=== PATIENT | female | born 1990 | race Caucasian/White ===

== ENCOUNTER 2020-04-05 19:38 | Observation (INO) | payer MEDICARE, MEDICAID, SELFPAY ==
[2020-04-05 19:40] VITALS: BP 154/80; PULSE 94; RESP 16; TEMP 36.2; O2SAT 100; BMI 25.7
--- NOTE | 2020-04-05 19:53 | EKG12_ITS ---
Test Reason : SUB ABUSE Blood Pressure : / mmHG Vent. Rate : 086 BPM Atrial Rate : 086 BPM P-R Int : 164 ms QRS Dur : 084 ms QT Int : 372 ms P-R-T Axes : 068 074 034 degrees QTc Int : 445 ms Normal sinus rhythm with sinus arrhythmia Normal ECG Confirmed by VICTOR M ARROYO, ARNOLDO ([id number]), clinical editor JANETT KUHN ([id number]) on 04/11/2020 8:19:46 A M Referred By: CL Confirmed By:MIKHAIL DOW MD
--- NOTE | 2020-04-05 19:55 | ED.RN ---
NO OLD EKGS IN MUSE
--- NOTE | 2020-04-05 19:56 | ED.VIS.GEN ---
History of Present Illness Chief Complaint: Substance Abuse Informant: Patient Narrative: 30-year-old female with no significant past medical history presents with requesting detoxification from fentanyl. States that she uses multiple grams per day. Insufflate this medication. States that she is a current smoker but denies any other con commitment drug abuse. States that she does have some diaphoresis but denies all other symptoms. Denies any nausea, vomiting, abdominal pain, urinary symptoms, chest pain, shortness of breath, fever, chills. Last use was approximately 17 hours ago. Past Medical History - Allergies and Home Meds Allergies/Adverse Reactions: Allergies lithium Allergy (Verified 04/05/20 19:42) NEEDS FOLLOW-UP Primary Care Physician: Bahman Scott,Out of [NON-STAFF] - Past Medical History: None Surgical History: no surgical history Lives: Friends Smoking Status: Current every day smoker Alcohol: Occasional Drugs: - - Fentanyl Review of Systems General: Denies: Chills, Fever, Sweats Eyes: Denies: Visual changes - bilaterally, Diplopia ENT: Denies: Rhinorrhea, Sore throat Cardiovascular: Denies: Chest pain, Palpitations Respiratory: Denies: Dyspnea, Cough, Dyspnea on exertion Gastrointestinal: Denies: Abdominal pain, Nausea, Vomiting, Diarrhea, Melena, Hematochezia Genitourinary: Denies: Dysuria, Hematuria, Frequency Musculoskeletal: Denies: Back pain, Extremity Pain Skin: Denies: Rash, Wounds Neurological: Denies: Headache, Weakness, Numbness Physical Exam Vital Signs/Narrative: Vital Signs Temp Pulse Resp BP Pulse Ox 04/05/20 19:40 97.2 F L 94 16 154/80 H 100 Inital Vital Signs reviewed: Yes General: Well nourished, Well developed, No Acute Distress Head: Normocephalic, Atraumatic Eyes: Perrl, EOMI ENT: Moist mucous membranes, No rhinorrhea Neck: Supple, Nontender Cardiovascular: Regular rate, Regular rhythm, No murmurs Respiratory: No distress, CTA bilaterally, Chest nontender Abdomen: Soft, Nontender, Nondistended, Normal bowel sounds Back: Nontender, Normal Inspection Extremities: Nontender, No edema Skin: Normal color, No rash Neurological: Alert, Oriented x3, Cranial nerves II-XII grossly intact, Normal Strength, Normal Sensation Psychological: Normal affect, Normal Mood Diagnostic/Tx/Re-eval Laboratory Data 04/05/20 04/05/20 04/05/20 20:00 20:00 20:40 WBC 11.2 H RBC 4.74 Hgb 14.8 Hct 45.2 MCV 95.4 MCH 31.2 MCHC 32.7 RDW Std Deviation 43.6 RDW Coeff of Barbra 12.4 Plt Count 320 MPV 9.0 Immature Gran % (Auto) 0.400 Neut % (Auto) 69.8 Lymph % (Auto) 23.0 [place] % (Auto) 5.7 Eos % (Auto) 0.7 Baso % (Auto) 0.4 Absolute Neuts (auto) 7.8 H Absolute Lymphs (auto) 2.59 Nucleated RBC % 0 Sodium Potassium Chloride Carbon Dioxide Anion Gap BUN Creatinine Estim Creat Clear Calc Est GFR (MDRD) Af Amer Est GFR (MDRD) Non-Af BUN/Creatinine Ratio Glucose Calcium Total Bilirubin AST ALT Alkaline Phosphatase Total Protein Albumin Globulin Albumin/Globulin Ratio Urine Color Yellow Urine Clarity Sl. Cloudy Urine pH 6.5 Ur Specific [place] 1.015 Urine Protein 15 H Urine Glucose (UA) Normal Urine Ketones 15 H Urine Occult Blood 10 H Urine Nitrite Negative Urine Bilirubin Negative Urine Urobilinogen 4 H Ur Leukocyte Esterase 100 H Urine RBC 0-5 SEEN Urine WBC 10-25 SEEN Ur Squamous Epith Cells 0-5 SEEN Amorphous Sediment 2+ URATE Urine Bacteria 0 SEEN Urine Mucus 0 SEEN Ur Drug Screen Comment Ethyl Alcohol 04/05/20 04/05/20 20:40 20:40 WBC RBC Hgb Hct MCV MCH MCHC RDW Std Deviation RDW Coeff of Barbra Plt Count MPV Immature Gran % (Auto) Neut % (Auto) Lymph % (Auto) [place] % (Auto) Eos % (Auto) Baso % (Auto) Absolute Neuts (auto) Absolute Lymphs (auto) Nucleated RBC % Sodium 137 Potassium 4.1 Chloride 105 Carbon Dioxide 28.0 Anion Gap 4 L BUN 12 Creatinine 0.79 Estim Creat Clear Calc 99.42 Est GFR (MDRD) Af Amer 108 Est GFR (MDRD) Non-Af 90 BUN/Creatinine Ratio 15.2 Glucose 100 Calcium 9.7 Total Bilirubin 0.60 AST 13 L ALT 18 Alkaline Phosphatase 81 Total Protein 8.9 H Albumin 4.4 Globulin 4.5 H Albumin/Globulin Ratio 1.0 Urine Color Urine Clarity Urine pH Ur Specific [place] Urine Protein Urine Glucose (UA) Urine Ketones Urine Occult Blood Urine Nitrite Urine Bilirubin Urine Urobilinogen Ur Leukocyte Esterase Urine RBC Urine WBC Ur Squamous Epith Cells Amorphous Sediment Urine Bacteria Urine Mucus Ur Drug Screen Comment Ethyl Alcohol 4.0 - Medical Decision Making Appears well nontoxic. Vital signs within normal limits. Patient given nicotine patch. Will be admitted for detoxification from fentanyl. Stable at time of admission. Impression: 1. Fentanyl abuse 2. Tobacco abuse ED Disposition - Plan for ED Patient: Disposition: Acute Care Hospital [facility] [place] [facility] Referrals: [facility] Doctor,Out of [NON-STAFF] -
[2020-04-05 20:15] LABS: Bacteria 0 SEEN /hpf (None Seen); Mucous, Urine 0 SEEN /hpf (<or=2+)
[2020-04-05 20:18] LABS: Color, Urine Yellow (Yellow); Glucose, Dipstick Normal (Normal); Ketone-Dipstick 15 mg/dl (Negative); Leukocyte Esterase-Dipstick 100 /ul (Negative); Nitrite-Dipstick Negative (Negative); Occult Blood-Urine 10 /ul (Negative); Protein-Dipstick 15 mg/dl (Negative); Specific Gravity, Urine 1.015 (1.002-1.030); Urine Bilirubin Dipstick Negative (Negative); Urine Clarity Sl. Cloudy (Clear); Urine Urobilinogen 4 mg/dl (Normal); Urine pH 6.5 (5.0 - 8.0)
[2020-04-05 20:43] LABS: Amorphous Sediment 2+ URATE; Red Blood Cells-Urine 0-5 SEEN /hpf (0-5); Squamous Epithelial Cells - UA 0-5 SEEN /hpf (5-10); White Blood Cells 10-25 SEEN /hpf (0-5)
--- NOTE | 2020-04-05 20:44 | CM.ED ---
Social Work Consult: Substance Abuse Informant: Self Referral Met with patient in room. Introduced self and professor of social work role. Patient agreeable to speak with this professor of social work. Patient reports to be seeking medical management of withdrawal symptoms. Patient reports substance of choice is Fentanyl. Patient states to have last used this morning. Patient verbally agreeing to [facility] contract. Patient reports main motivation is getting my kids back. Patient tearful and states that patient children are currently is the custody of [facility] due to patient substance abuse. Patient reports to have lost custody of children in December of this year. Active support and listening provided. Lorna MOHAN, JAMAL
[2020-04-05 20:53] LABS: Absolute Lymphocyte Count 2.59 X10^3/uL (0.83-4.51); Absolute Neutrophil Count 7.8 X10^3/uL (2.0-7.7); Basophil# 0.05 X10^3/uL; Basophil% 0.4 % (0-1); Eosinophil# 0.08 X10^3/uL; Eosinophils% 0.7 % (0-5); Hematocrit 45.2 % (37-47); Hemoglobin 14.8 g/dL (12.0-15.0); Lymphocyte # 2.59 X10^3/ul (4.0); Mean Corp Hgb Conc 32.7 g/dL (32-36); Mean Corpuscular Hgb 31.2 pg (27.0-32.0); Mean Corpuscular Volume 95.4 fL (81-99); Monocyte# 0.64 X10^3/uL; Monocyte% 5.7 % (0-10); NRBC Flagged by Analyzer 0 % (0-5); Neutrophil # 7.84 X10^3/uL (2.7-7.7); Neutrophil % 69.8 % (47-70); Platelet Count 320 K/mm3 (150-450); RBC Distribution Width CV 12.4 % (11.6-14.6); RBC Distribution Width SD 43.6 fl (35.1-43.9); Red Blood Count 4.74 M/mm3 (4.2-5.4); White Blood Count 11.2 K/mm3 (4.4-11.0)
[2020-04-05 21:14] LABS: AST(SGOT) 13 U/L (15-37); Alanine Aminotransfer ALT/SGPT 18 U/L (13-56); Albumin, Serum 4.4 g/dL (3.2-5.0); Alkaline Phosphatase 81 U/L (45-117); Anion Gap 4 (5-15); BUN 12 mg/dL (7-18); BUN/Creat Ratio 15.2 RATIO (10-20); Calcium,Total 9.7 mg/dL (8.5-10.1); Chloride 105 mmol/L (98-107); Creatinine, Serum 0.79 mg/dL (0.55-1.02); EST Glomerular Filtration Rate 90 mL/min (>60); Est Glom Filt Rate - Afr Amer 108 mL/min (>60); Estimated Creatinine Clearance 99.42 ml/min; Globulin 4.5 g/dL (2.2-4.2); Glucose 100 mg/dL (74-106); Potassium 4.1 mmol/L (3.5-5.1); Protein, Total 8.9 g/dL (6.4-8.2); Sodium Level 137 mmol/L (136-145)
[2020-04-05 21:39] LABS: Amphetamine Urine VISTA POSITIVE (<1000 ng/mL); Barbiturate Urine VISTA NEGATIVE (< 200 ng/mL); Benzodiazepine Urine VISTA NEGATIVE (< 200 ng/mL); Cocaine Urine VISTA NEGATIVE (< 300 ng/mL); Ecstacy Urine VISTA POSITIVE (< 500 ng/mL); Methadone Urine VISTA POSITIVE (< 300 ng/mL); PCP Urine VISTA NEGATIVE (< 25 ng/mL); THC Urine VISTA POSITIVE (< 50 ng/mL); Vista UDS pH Range 6
--- NOTE | 2020-04-05 21:43 | CM.ED ---
Social Work Telephone call to [facility]. Manoj updated on patient being admitted to [facility] program. Lorna Vasques RESIDENTIAL SALES, VICKIS
--- NOTE | 2020-04-05 22:12 | PCM.HP.STD ---
Problem List (1) Opiate withdrawal Status: Acute History of Present Illness Date of Admission: 04/05/20 Chief Complaint: acute opiate withdrawal The patient is a 30 year old F seeking treatment for opiate use. Patient states that she snorts fentanyl which she thinks more recently was contaminated with or cut with methamphetamine. Patient said that her last use was 2 AM today and has not slept since then. Patient is seeking treatment for opiate withdrawal. She states that she is established with [facility] and I will be following up with them upon discharge. Patient came with her ex-boyfriend who is also seeking treatment for opiate withdrawal but he injects. The patient herself snorts and does not use needles. Though she is very concerned about having contracted hepatitis because she may have inadvertently injecting herself by grabbing some use needles but also she was sexually involved with users who did inject. [] Past Medical History Medical History: Medical History (Last Updated 04/05/20 @ 22:[address] Lalito Ruiz, DO) Bipolar disorder F31.9 Opiate abuse, continuous F11.10 Allergies lithium Allergy (Verified 04/05/20 19:42) NEEDS FOLLOW-UP Home Medications: Ambulatory Orders Medication Instructions Recorded Aripiprazole [Abilify] 5 mg PO DAILY 04/05/20 Clonazepam [Klonopin] 0.5 mg PO Q8H PRN PRN 04/05/20 Trazodone HCl 1 - 2 mg PO QHS 04/05/20 busPIRone [Buspar] 10 mg PO TID 04/05/20 Surgical History: no surgical history Lives: Friends Smoking Status: Current every day smoker Alcohol: Occasional Drugs: - - Fentanyl - *Family History Maternal History Items: No pertinent history Review of Systems Constitutional: Denies: Anorexia, Chills, Fever Eyes: Denies: Blurred vision, Double vision HEENT: Denies: Head Aches, Sinus Congestion, Sinus Drainage Cardiovascular: Denies: Chest Pain, Palpitations Respiratory: Denies: Cough, Shortness of breath at rest, Sputum production Gastrointestinal: Denies: Abdominal Pain, Nausea, Vomiting Genitourinary: Denies: Dysuria Musculoskeletal: Denies: Joint Pain, Joint Tenderness Psychiatric: Reports: Anxiety Comment: All review of systems were negative except as mentioned above in the history of present illness and the other review of systems. VTE Information - Inpt Only VTE Present on Admission: No VTE Mechan Device Prophylaxis: None VTE Pharm Prophylaxis ordered?: No Reason prophylaxis not ordered:: Treatment Not Indicated - Physical Exam Vitals/I&O's: Vital Signs Temp Pulse Resp BP Pulse Ox 36.2 C L 94 16 154/80 H 100 04/05/20 19:40 04/05/20 19:40 04/05/20 19:40 04/05/20 19:40 04/05/20 19:40 Oxygen Delivery Method Room Air Weight: 74.7 kg Body Mass Index (BMI) 25.7 General: Alert, Cooperative, No apparent distress HEENT: Atraumatic, Normocephalic Oral: Moist Mucosa, No Gingival or Mucosal Lesions/ Ulcerations Neck: No Nodes, Thyroid Normal Size and Texture Lungs: Clear to auscultation, Normal air movement, No rhonchi, No wheeze, No rales Cardiovascular: Regular rate, Regular Rhythm, Normal S1, Normal S2, No murmurs Abdomen: Bowel Sounds Present, Soft, Non Tender, Non-Distended, No Hepato-splenomegaly Extremities: No edema, No Calf Tenderness Skin: No rashes, No breakdown Musculoskeletal: No Tenderness to Palpation of Joints or Extremities, No Muscle Wasting, Arthritic Changes Psych/Mental Status: Appropriate, Anxious Laboratory Results 04/05/20 20:00: Urine Opiates Screen POSITIVE H, Urine Methadone Screen POSITIVE H, Ur Barbiturates Screen NEGATIVE, Ur Phencyclidine Scrn NEGATIVE, Ur Amphetamines Screen POSITIVE H, U Methamphetamin-MDMA POSITIVE H, U Benzodiazepines Scrn NEGATIVE, Urine Cocaine Screen NEGATIVE, U Cannabinoids Screen POSITIVE H, Ur Drug Screen Comment 04/05/20 20:00: Urine Color Yellow, Urine Clarity Sl. Cloudy, Urine pH 6.5, Ur Specific [place] 1.015, Urine Protein 15 H, Urine Glucose (UA) Normal, Urine Ketones 15 H, Urine Occult Blood 10 H, Urine Nitrite Negative, Urine Bilirubin Negative, Urine Urobilinogen 4 H, Ur Leukocyte Esterase 100 H, Urine RBC 0-5 SEEN, Urine WBC 10-25 SEEN, Ur Squamous Epith Cells 0-5 SEEN, Amorphous Sediment 2+ URATE, Urine Bacteria 0 SEEN, Urine Mucus 0 SEEN 04/05/20 20:40: WBC 11.2 H, RBC 4.74, Hgb 14.8, Hct 45.2, MCV 95.4, MCH 31.2, MCHC 32.7, RDW Std Deviation 43.6, RDW Coeff of Barbra 12.4, Plt Count 320, MPV 9.0, Immature Gran % (Auto) 0.400, Neut % (Auto) 69.8, Lymph % (Auto) 23.0, [place] % (Auto) 5.7, Eos % (Auto) 0.7, Baso % (Auto) 0.4, Absolute Neuts (auto) 7.8 H, Absolute Lymphs (auto) 2.59, Nucleated RBC % 0 04/05/20 20:40: Sodium 137, Potassium 4.1, Chloride 105, Carbon Dioxide 28.0, Anion Gap 4 L, BUN 12, Creatinine 0.79, Estim Creat Clear Calc 99.42, Est GFR (MDRD) Af Amer 108, Est GFR (MDRD) Non-Af 90, BUN/Creatinine Ratio 15.2, Glucose 100, Calcium 9.7, Total Bilirubin 0.60, AST 13 L, ALT 18, Alkaline Phosphatase 81, Total Protein 8.9 H, Albumin 4.4, Globulin 4.5 H, Albumin/Globulin Ratio 1.0 04/05/20 20:40: Ethyl Alcohol 4.0 Assessment/Plan All Active Problems Opiate withdrawal (Acute) 1. Acute opiate withdrawal: Patient's last use was around 2 AM. Drug screen positive for opiates, methadone, amphetamines, methamphetamines and cannabinoids. Patient will be initiated on buprenorphine taper which generally takes over 3 days. Patient states that she has a appointment on the with the addiction program. I told her that we would and evaluate as to how she is progressing during the course of her treatment if it would be prudent for her to be discharged day early to have that appointment or not. Patient also have other medications to help with her somatic complaints. Patient very concerned about having contracted hepatitis and is requesting test even though she is never any drugs though she is unsure if she is ever poked herself by grabbing needles of fellow users. 2. Bipolar disorder: Certainly complicates her long-term recovery. Continue with her home medications. Would defer to her psychiatrist regards to continuation of clonazepam in the noted drug addict but I will not change the prescription that she has received at this time. 3. VTE prophylaxis: Not indicated and low risk. Inpatient E&M: 46353 Init Hosp L2
[2020-04-05 22:14] VITALS: BP 118/74; PULSE 83; RESP 16; TEMP 36.6; O2SAT 99
[2020-04-05 23:45] VITALS: BMI 25.2
[2020-04-05 23:51] VITALS: BMI 25.3
[2020-04-05 23:56] VITALS: BP 120/90; PULSE 102; RESP 16; TEMP 36.6; O2SAT 98
[2020-04-06] MEDS: Gabapentin 300 MG Capsule PO ×3 (00:33→21:32)
[2020-04-06] MEDS: Buprenorphine HCl 2 MG TAB.SUBL SL ×3 (00:34→17:21)
[2020-04-06] MEDS: clonazePAM 0.5 MG Tablet PO ×3 (00:34→14:41)
[2020-04-06] MEDS: cloNIDine HCl 0.1 MG Tablet PO ×2 (00:34→08:17)
[2020-04-06] MEDS: Methocarbamol 750 MG Tablet 1500 MG PO ×3 (00:34→21:32)
[2020-04-06] MEDS: traZODone 50 MG Tablet 200 MG PO ×2 (01:23→21:24)
[2020-04-06] MEDS: busPIRone 15 MG TABLET 30 MG PO ×2 (01:23→21:23)
[2020-04-06] MEDS: ARIPiprazole 5 MG Tablet PO ×2 (01:23→21:25)
[2020-04-06 04:35] VITALS: BP 121/84; PULSE 90; RESP 14; TEMP 36.7; O2SAT 97
[2020-04-06 08:15] VITALS: BP 111/65; PULSE 75; RESP 18; TEMP 36.2; O2SAT 97
[2020-04-06] MEDS: Ibuprofen 600 MG Tablet PO (08:17)
[2020-04-06 09:42] LABS: HIV - WCH Non-Reactive (Nonreactive)
--- NOTE | 2020-04-06 11:11 | PCM.PN.HOSP ---
Patient Problems: Active and Suspected Problems (Last Updated 04/05/20 @ 22:[address] Lalito Ruiz, DO) Opiate withdrawal (Acute) Subjective: Pt states she smokes a lot and is asking for gum as well as a patch for nicotine cravings. Otherwise is feeling ok and not having too many withdrawal sx. Denies chills, nausea, diarrhea, agitation. Vitals/I&O's: Vital Signs Temp Pulse Resp BP Pulse Ox 97.1 F L 75 18 111/65 97 04/06/20 08:15 04/06/20 08:15 04/06/20 08:15 04/06/20 08:15 04/06/20 08:15 Oxygen Delivery Method Room Air Weight: 73.2 kg Body Mass Index (BMI) 25.2 Intake and Output for Last 24 Hours 04/04/20 04/05/20 04/06/20 23:59 23:59 23:59 Intake Total 50 / 50 Balance 50 / 50 General: Alert, Oriented x3, Cooperative, No apparent distress, Well developed, Well nourished, - - WF lying on L side under blankets in a dark room, appears older than stated age, calm Lungs: Clear to auscultation, Normal air movement, No rhonchi, No wheeze, No rales Cardiovascular: Regular rate, Regular Rhythm, Normal S1, Normal S2, No murmurs, No Ectopic Activity, No rub noted, No Gallop Abdomen: Bowel Sounds Present, Soft, Non Tender, Non-Distended, No Hepato-splenomegaly, No hernias noted Extremities: No clubbing, No cyanosis, No edema, Capillary Refill Less than 3 Seconds, Peripheral Pulses Normal Neurological: Cranial nerves II-XII grossly intact, Neuro grossly intact Psych/Mental Status: Appropriate, Flat Affect Laboratory Results 04/05/20 20:00: Urine Opiates Screen POSITIVE H, Urine Methadone Screen POSITIVE H, Ur Barbiturates Screen NEGATIVE, Ur Phencyclidine Scrn NEGATIVE, Ur Amphetamines Screen POSITIVE H, U Methamphetamin-MDMA POSITIVE H, U Benzodiazepines Scrn NEGATIVE, Urine Cocaine Screen NEGATIVE, U Cannabinoids Screen POSITIVE H, Ur Drug Screen Comment 04/05/20 20:00: Urine Color Yellow, Urine Clarity Sl. Cloudy, Urine pH 6.5, Ur Specific [place] 1.015, Urine Protein 15 H, Urine Glucose (UA) Normal, Urine Ketones 15 H, Urine Occult Blood 10 H, Urine Nitrite Negative, Urine Bilirubin Negative, Urine Urobilinogen 4 H, Ur Leukocyte Esterase 100 H, Urine RBC 0-5 SEEN, Urine WBC 10-25 SEEN, Ur Squamous Epith Cells 0-5 SEEN, Amorphous Sediment 2+ URATE, Urine Bacteria 0 SEEN, Urine Mucus 0 SEEN 04/05/20 20:40: WBC 11.2 H, RBC 4.74, Hgb 14.8, Hct 45.2, MCV 95.4, MCH 31.2, MCHC 32.7, RDW Std Deviation 43.6, RDW Coeff of Barbra 12.4, Plt Count 320, MPV 9.0, Immature Gran % (Auto) 0.400, Neut % (Auto) 69.8, Lymph % (Auto) 23.0, [place] % (Auto) 5.7, Eos % (Auto) 0.7, Baso % (Auto) 0.4, Absolute Neuts (auto) 7.8 H, Absolute Lymphs (auto) 2.59, Nucleated RBC % 0 04/05/20 20:40: Sodium 137, Potassium 4.1, Chloride 105, Carbon Dioxide 28.0, Anion Gap 4 L, BUN 12, Creatinine 0.79, Estim Creat Clear Calc 99.42, Est GFR (MDRD) Af Amer 108, Est GFR (MDRD) Non-Af 90, BUN/Creatinine Ratio 15.2, Glucose 100, Calcium 9.7, Total Bilirubin 0.60, AST 13 L, ALT 18, Alkaline Phosphatase 81, Total Protein 8.9 H, Albumin 4.4, Globulin 4.5 H, Albumin/Globulin Ratio 1.0 04/05/20 20:40: Ethyl Alcohol 4.0 04/05/20 20:40: Hepatitis A IgM Ab Pending, Hep Bs Antigen Pending, Hep B Core IgM Ab Pending, Hepatitis C Ab (EIA) Pending 04/05/20 20:40: HIV 1&2 Antibody Non-Reactive Current Medications Acetaminophen (Acetaminophen 500 Mg Tablet) 500 mg PO Q4H PRN PRN PRN Reason: Temp > 100.4 F Aripiprazole (Aripiprazole 5 Mg Tablet) 5 mg PO QHS JACKIE Last Admin: 04/06/20 01:23 Dose: 5 mg Documented by: Bisacodyl (Bisacodyl 10 Mg Suppository) 10 mg RECTAL DAILY PRN PRN PRN Reason: Constipation Buprenorphine HCl (Buprenorphine Hcl 2 Mg Tab.Subl) 4 mg SL Q8H JACKIE; Taper Stop: 04/09/20 00:14 Last Admin: 04/06/20 08:12 Dose: 4 mg Documented by: Buspirone HCl (Buspirone 15 Mg Tablet) 30 mg PO QHS [facility] Last Admin: 04/06/20 01:23 Dose: 30 mg Documented by: Clonazepam (Clonazepam 0.5 Mg Tablet) 0.5 mg PO Q8H PRN PRN PRN Reason: ANXIETY Last Admin: 04/06/20 08:21 Dose: 0.5 mg Documented by: Clonidine (Clonidine Hcl 0.1 Mg Tablet) 0.1 mg PO Q8H PRN PRN PRN Reason: RESTLESSNESS Last Admin: 04/06/20 08:17 Dose: 0.1 mg Documented by: Dicyclomine HCl (Dicyclomine 10 Mg Capsule) 20 mg PO Q6H PRN PRN PRN Reason: Abdominal Discomfort Gabapentin (Gabapentin 300 Mg Capsule) 300 mg PO Q8H PRN PRN PRN Reason: moderate to severe anxiety Last Admin: 04/06/20 08:18 Dose: 300 mg Documented by: Hydroxyzine Pamoate (Hydroxyzine Rossi 25 Mg Capsule) 50 mg PO Q6H PRN PRN PRN Reason: mild anxiety Ibuprofen (Ibuprofen 600 Mg Tablet) 600 mg PO Q8H PRN PRN PRN Reason: Pain Score 1-10 Last Admin: 04/06/20 08:17 Dose: 600 mg Documented by: Loperamide HCl (Loperamide 2 Mg Capsule) 2 mg PO Q4H PRN PRN PRN Reason: LOOSE STOOLS Methocarbamol (Methocarbamol 750 Mg Tablet) 1,500 mg PO Q6H PRN PRN PRN Reason: MUSCLE SPASM Last Admin: 04/06/20 08:18 Dose: 1,500 mg Documented by: Nicotine (Nicotine 21 Mg Patch) 21 mg TRANSDERM. DAILY JACKIE Last Admin: 04/06/20 08:13 Dose: 21 mg Documented by: Nicotine Polacrilex (Nicotine Polacrilex 2 Mg Gum) 2 mg PO Q2H PRN PRN PRN Reason: Nicotine Craving Ondansetron HCl (Ondansetron 8 Mg Tablet) 8 mg PO Q8H PRN PRN PRN Reason: NAUSEA Pramipexole Dihydrochloride (Pramipexole Di-Hcl 0.25 Mg Tablet) 0.25 mg PO TID PRN PRN PRN Reason: restless legs Senna (Senna Tablet) 2 tablet PO QHS PRN PRN PRN Reason: Constipation Trazodone HCl (Trazodone 50 Mg Tablet) 200 mg PO QHS [facility] Last Admin: 04/06/20 01:23 Dose: 200 mg Documented by: STROKE Vital Signs/Narrative: Vital Signs Temp Pulse Resp BP Pulse Ox 04/06/20 08:15 97.1 F L 75 18 111/65 97 Medical Necessity - Tobacco Use Smoking Status: Current every day smoker Tobacco Use: Cigarettes Assessment/Plan All Active Problems (Last Updated 04/05/20 @ 22:[address] Lalito Ruiz, DO) Opiate withdrawal (Acute) Acute Opiate Withdrawal -last use 2 am on 04/05 -On Suboxone taper with supportive meds -180 to evaluate -HIV neg and hepatitis studies are pending -pt denies IVDU and states that she snorts fentanyl Polysubstance Abuse -tox + for opiates/methadone/amphetamines/THC -180 to see Tobacco Abuse -recommend cessation -continue Nicotine patch -add nicotine gum Bipolar D/O -continue Abilify/Buspar/PRN Klonopin -trazodone at hs -f/u with psych as directed DVT Prophylaxis -early ambulation protocol Dispo -Likely d/c over the weekend Inpatient E&M: 57636 Subs Hosp L2
[2020-04-06] MEDS: Nicotine Polacrilex 2 MG GUM PO ×3 (12:20→21:24)
--- NOTE | 2020-04-06 13:04 | ADDICTION ---
This public relations writer met with patient in her room. She was alert and oriented and participated appropriately. She informed this public relations writer that she has a scheduled appointment for MAT and IND services at [facility] upon d/c from [facility]. She will self transport to these appointments upon d/c from [facility]. Completed assessments to be faxed to .
[2020-04-06] MEDS: Dicyclomine 10 MG Capsule 20 MG PO (14:41)
[2020-04-06] MEDS: Ondansetron 8 MG Tablet PO (14:41)
--- NOTE | 2020-04-06 15:20 | CHAPLAIN ---
Type of Pastoral Visit _x__ Initial Visit ___ Follow-up Visit ___ On-call Visit ___ General Patient Visit ___ Spiritual Assessment ___ Family Conference ___ Bereavement ___ Rapid Response ___ Code Blue ___ Other (describe below) Pastoral Care Referral From _x__ Patient ___ Family ___ Nurse ___ Physician ___ [employer] Lead [employer]ds Marketing ___ Firewall Engineer ___ Other (describe below) Sacrament/Intervention _x__ Active listening ___ Anointing ___ Synagogue ___ Bereavement ___ Communion _x__ Sulma exploration ___ _x__ Life review _x__ Prayer ___ Reconciliation ___ Sacrament of Sick _x__ Supportive presence ___ Wedding ___ Other (describe below) Pastoral Comments patient gave much life review and revealed many issues and emotional pain; pt has concerns related to drug addiction, relationships, loss of custody and future court matters of children, trust, support, and more; pt states that she has a counselor but that it has not been beneficial to her yet; pt says that she has no family support at this time; pt says I was just given a peer counselor for the addiction and that is all I have; patient would benefit from counseling, rehab, groups, and any options available;
[2020-04-06 17:25] VITALS: BP 110/66; PULSE 74; RESP 16; TEMP 36.3; O2SAT 97
[2020-04-06 21:20] VITALS: BP 110/73; PULSE 107; RESP 18; TEMP 36.8; O2SAT 100
[2020-04-06] MEDS: Loperamide 2 MG Capsule PO (21:32)
[2020-04-06] MEDS: Pramipexole Di-HCl 0.25 MG Tablet PO (21:32)
[2020-04-07] MEDS: clonazePAM 0.5 MG Tablet PO (00:39)
[2020-04-07] MEDS: Buprenorphine HCl 2 MG TAB.SUBL SL ×2 (00:40→07:17)
[2020-04-07 00:43] VITALS: BP 126/81; PULSE 94; RESP 16; TEMP 36.7; O2SAT 97
[2020-04-07] MEDS: Gabapentin 300 MG Capsule PO (05:44)
[2020-04-07] MEDS: Dicyclomine 10 MG Capsule 20 MG PO (05:44)
[2020-04-07] MEDS: Loperamide 2 MG Capsule PO (05:44)
[2020-04-07] MEDS: Nicotine Polacrilex 2 MG GUM PO (05:47)
[2020-04-07 05:55] VITALS: BP 120/75; PULSE 98; RESP 18; TEMP 36.4; O2SAT 96
--- NOTE | 2020-04-07 07:08 | PCM.DC ---
- Discharge Diagnoses Current Active Problems: Current Active and Chronic Problems (Last Updated 04/05/20 @ 22:[address] Lalito Ruiz, DO) Opiate withdrawal (Acute) You will use the following diet at home:: No restrictions, Regular Your food should be the consistency of: Regular Your liquids should be the consistency of: Regular/Thin Discharge Activity: Return to Normal Activity, No Restrictions, May Drive Allergies/Adverse Reactions: Allergies lithium Allergy (Verified 04/05/20 19:42) NEEDS FOLLOW-UP Medications to take at Discharge Aripiprazole [Abilify] 5 mg PO QHS 04/05/20 Clonazepam [Klonopin] 0.5 mg PO Q8H PRN PRN 04/05/20 Trazodone HCl 200 mg PO QHS 04/05/20 busPIRone [Buspar] 30 mg PO QHS 04/05/20 Primary Care Physician: [facility] Doctor,Out of [NON-STAFF] - Please follow up with your Primary Care Physician in: 1-2 weeks Test Results: Test results from this visit will be discussed in further detail at your follow-up appointment, if applicable. Please Follow Up With: Addiction When: Today for injection at 10 am
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
[2020-04-08 03:07] LABS: HEPATITIS B SURFACE AG Negative (Negative); Hepatitis A IgM Antibody Negative (Negative); Hepatitis B Core AB IgM Negative (Negative)
[2020-04-08 12:45] LABS: Hep C Antibodies <0.1 s/co ratio (0.0-0.9)
== END 2020-04-07 07:46 | disposition home or self-care (01) | DRG 897 ==
LOC: ED 21:27 → MS3 21:50
PROVIDERS: Emergency Provider Emergency Medicine; PCP Physician Assistant Medical; Visit Provider Internal Medicine
DX: F11.23 Opioid dependence with withdrawal (principal); F17.210 Nicotine dependence, cigarettes, uncomplicated; F31.9 Bipolar disorder, unspecified; F15.10 Other stimulant abuse, uncomplicated; F12.10 Cannabis abuse, uncomplicated; Z20.5 Contact with and (suspected) exposure to viral hepatitis; Z79.899 Other long term (current) drug therapy
CPT/HCPCS: 80053; 80074; 80307; 80320; 81001; 85025; 86703; 93005; 99218; 99281; 99406; G0378; G0480

== ENCOUNTER 2023-08-06 10:08 | Observation (INO) | payer MEDICARE, MEDICAID, SELFPAY ==
[2023-08-06 10:09] VITALS: BP 134/88; PULSE 88; RESP 16; TEMP 36.2; O2SAT 100; BMI 24.6
--- NOTE | 2023-08-06 10:26 | EDS_ITS ---
HPI History of Present Illness Chief Complaint: Substance Abuse Narrative Narrative: 33-year-old female past medical history of chronic neck pain and radiculopathy presents for detox from fentanyl. She relates history that she went through detox a few years ago. She had 3 years clean and sober from substance abuse. She states that she had to have kidney surgery, and send in the hospital on Dilaudid . She started using again after she was discharged. She states that she already has an outpatient center lined up for Saturday but wants to be admitted for detox. She last snorted fentanyl yesterday morning at around 8 or 9 AM. [facility] Medical History Bipolar disorder Opiate abuse, continuous Home Medications aripiprazole 5 mg tablet 5 mg PO QHS bipolar 04/05/20 [History Last Taken 04/03/20] buspirone 5 mg tablet 30 mg PO QHS depression 04/05/20 [History Last Taken 04/03/20] clonazepam 0.5 mg tablet 0.5 mg PO Q8H PRN PRN Anxiety 04/05/20 [History Last Taken 04/04/20] trazodone 100 mg tablet 200 mg PO QHS sleep 04/05/20 [History Last Taken 04/03/20] Allergy/AdvReac Type Severity Reaction Status Date / Time lithium Allergy NEEDS Verified 08/06/23 10:08 FOLLOW-UP Social History Smoking Status: Current every day smoker tobacco type: cigarettes ROS ROS ED ROS Narrative Constitutional: No fever, no chills. HEENT: No sore throat. No neck pain. No loss of vision. No rhinorrhea. Cardiovascular: No chest pain. No palpitations. No pedal edema. Respiratory: No cough, no shortness of breath. Abdominal: No abdominal pain. No nausea. No vomiting. Genitourinary: No dysuria. No hematuria. Musculoskeletal: No myalgias. No arthralgias. Neurologic: No headaches. No dizziness. No lightheadedness. Skin: No rash. No change in color. Psychiatric: No depression. No anxiety. EXAM Physical Exam Narrative Exam Narrative: Afebrile. Vital signs noted. HEENT: Normocephalic. Atraumatic. PERRL, EOMI. Neck soft and supple. No point tenderness or step off. Cardiovascular: Regular rate and rhythm. No murmurs, rubs, or gallops appreciated. Respiratory: No tachypnea. Lungs clear to auscultation bilaterally. Gastrointestinal: Abdomen soft, nontender, with normoactive bowel sounds. No rebound or guarding. Neurological: Awake. Alert. Nonfocal, nonlateralizing. Skin: No rash. Normal color. No pallor. Musculoskeletal: No pedal edema. Full range of motion extremities. Const Vital Signs: 08/06/23 10:09 Temperature 97.2 F L Temperature Source Temporal Pulse Rate 88 Respiratory Rate 16 Blood Pressure 134/88 H Blood Pressure Mean 103 Pulse Ox 100 Oxygen Delivery Method Room Air MDM MDM MDM Narrative Medical decision making narrative: Medical screening labs were obtained. I reviewed her prior records. She was seen in March 2020 and was admitted for fentanyl detox/opiate detox. Patient will be discussed with the hospitalist for admission. I reviewed her laboratory work and she has a leukocytosis of 18.9 which I think is nonspecific, hemoglobin normal at 14.7, hematocrit 45.8, platelet count normal at 349. CMP is grossly unremarkable with normal sodium and normal potassium at 138 and 4.5 respectively. Ethyl alcohol was reviewed and is negative. Serum is negative. Urine for drugs of abuse is positive for cannabinoids, but negative for other opiates. Patient was discussed with Dr. Abrams for admission to the medical surgical floor for detox from opiates. Disposition is admitted in stable condition. History & Record Review Discussion w/independent historian: Patient Additional record(s) reviewed:: Prior ED visit Lab Data Attestation: I reviewed the patient's lab results. Labs: Laboratory Results - last 24 hr 08/06/23 08/06/23 10:30 10:50 WBC 18.9 H RBC 4.77 Hgb 14.7 Hct 45.8 MCV 96.0 MCH 30.8 MCHC 32.1 RDW Std Deviation 44.0 H RDW Coeff of Barbra 12.4 Plt Count 349 MPV 9.2 Immature Gran % (Auto) 0.400 Neut % (Auto) 82.1 H Lymph % (Auto) 12.1 L [place] % (Auto) 4.1 Eos % (Auto) 0.8 Baso % (Auto) 0.5 Absolute Neuts (auto) 15.5 H Absolute Lymphs (auto) 2.28 Nucleated RBC % 0 Sodium 138 Potassium 4.5 Chloride 107 Carbon Dioxide 29.0 Anion Gap 2 L BUN 12 Creatinine 0.79 Estim Creat Clear Calc 96.66 Est GFR (MDRD) Af Amer 106 Est GFR (MDRD) Non-Af 88 BUN/Creatinine Ratio 15.2 Glucose 89 Calcium 9.1 Total Bilirubin 0.10 L AST 18 ALT 17 Alkaline Phosphatase 71 Total Protein 7.8 Albumin 3.7 Globulin 4.1 Albumin/Globulin Ratio 0.9 Serum , Qual NEGATIVE Urine Opiates Screen NEGATIVE Urine Methadone Screen NEGATIVE Ur Barbiturates Screen NEGATIVE Ur Phencyclidine Scrn NEGATIVE Ur Amphetamines Screen NEGATIVE MDMA (Ecstasy) Screen NEGATIVE U Benzodiazepines Scrn NEGATIVE Urine Cocaine Screen NEGATIVE U Cannabinoids Screen POSITIVE H Ur Drug Screen Comment Ethyl Alcohol < 3.0 Management Discussion w/another healthcare provider: Hospitalist (Dr. Abrams) Discharge Plan Dx/Rx/DC Orders Clinical Impression: Opiate withdrawal, Desire for detoxification Disposition Disposition: Acute Care Hospital [facility]
[2023-08-06 11:00] LABS: Absolute Lymphocyte Count 2.28 X10^3/uL (0.83-4.51); Absolute Neutrophil Count 15.5 X10^3/uL (2.0-7.7); Basophil# 0.09 X10^3/uL; Basophil% 0.5 % (0-1); Eosinophil# 0.15 X10^3/uL; Eosinophils% 0.8 % (0-5); Hematocrit 45.8 % (37-47); Hemoglobin 14.7 g/dL (12.0-15.0); Lymphocyte # 2.28 X10^3/ul (0.83-4.51); Lymphocyte % 12.1 % (19-41); Mean Corp Hgb Conc 32.1 g/dL (32-36); Mean Corpuscular Hgb 30.8 pg (27.0-32.0); Mean Platelet Vol. 9.2 fl (6.2-12.0); Monocyte# 0.78 X10^3/uL; Monocyte% 4.1 % (0-10); NRBC Flagged by Analyzer 0 % (0-5); Neutrophil # 15.48 X10^3/uL (2.7-7.7); Neutrophil % 82.1 % (47-70); Platelet Count 349 K/mm3 (150-450); RBC Distribution Width CV 12.4 % (11.6-14.6); Red Blood Count 4.77 M/mm3 (4.2-5.4); White Blood Count 18.9 K/mm3 (4.4-11.0)
[2023-08-06 11:15] LABS: Amphetamine Urine VISTA NEGATIVE (<1000 ng/mL); Barbiturate Urine VISTA NEGATIVE (< 200 ng/mL); Benzodiazepine Urine VISTA NEGATIVE (< 200 ng/mL); Cocaine Urine VISTA NEGATIVE (< 300 ng/mL); Ecstacy Urine VISTA NEGATIVE (< 500 ng/mL); Methadone Urine VISTA NEGATIVE (< 300 ng/mL); PCP Urine VISTA NEGATIVE (< 25 ng/mL); THC Urine VISTA POSITIVE (< 50 ng/mL); Vista UDS pH Range 6
[2023-08-06 11:16] LABS: ALB/GLOB Ratio 0.9 RATIO (0.9-2.4); AST(SGOT) 18 U/L (15-37); Alanine Aminotransfer ALT/SGPT 17 U/L (13-56); Albumin, Serum 3.7 g/dL (3.2-5.0); Alkaline Phosphatase 71 U/L (45-117); Anion Gap 2 (5-15); BUN 12 mg/dL (7-18); BUN/Creat Ratio 15.2 RATIO (10-20); Calcium,Total 9.1 mg/dL (8.5-10.1); Chloride 107 mmol/L (98-107); Creatinine, Serum 0.79 mg/dL (0.55-1.02); EST Glomerular Filtration Rate 88 mL/min (>60); Est Glom Filt Rate - Afr Amer 106 mL/min (>60); Estimated Creatinine Clearance 96.66 ml/min; Globulin 4.1 g/dL (2.2-4.2); Glucose 89 mg/dL (74-106); Potassium 4.5 mmol/L (3.5-5.1); Protein, Total 7.8 g/dL (6.4-8.2); Sodium Level 138 mmol/L (136-145)
[2023-08-06 11:19] LABS: Internal QC Validated? YES +Cl - CLEAR BKGD; Pregnancy, Serum, hCG Quali. NEGATIVE Negative
[2023-08-06 11:24] LABS: Alcohol, Blood (Medical)-Serum < 3.0 mg/dL
--- NOTE | 2023-08-06 11:34 | PCM.HP.STD ---
HPI - General General Date of Admission: 08/06/23 Date of Service: 08/06/23 Chief Complaint: Opiate abuse with desire for detox HPI Narrative BUSHRA VELEZ, is a 33 F who presented to [facility] ED on 08/06/2023 with opiate abuse with the desire for detoxification. Patient seen at bedside in the ED. Sitting up the edge of the bed, appears mildly anxious on exam. She appeared somewhat flushed and diaphoretic. She otherwise was conversing normally and in no acute distress. States that she last went through opiate detox about 3 to 4 years ago. She was 3 years clean and sober for substance abuse. However, she recently had kidney surgery and was given opiates during that hospitalization. She started using again after that discharge. She snorts fentanyl. Last use was yesterday morning around 8 or 9 AM. She otherwise denied any recent infectious symptoms. Denied any fevers or chills. No other acute concerns this time. [facility] Medical History Bipolar disorder Opiate abuse, continuous Home Medications NK 08/06/23 [History Last Taken Unknown] Allergy/AdvReac Type Severity Reaction Status Date / Time lithium Allergy NEEDS Verified 08/06/23 10:08 FOLLOW-UP Social History Smoking Status: Current every day smoker tobacco type: cigarettes ROS Constitutional Constitutional: Reports fatigue; Denies chills or fever(s) Eyes Eyes: Denies change in vision ENT HEENT: Denies nasal congestion, post nasal drip, sinus pressure or sore throat Cardiovascular Cardiovascular: Denies chest pain or edema Respiratory/Chest Respiratory/Chest: Denies cough or shortness of breath at rest Gastrointestinal Gastrointestinal: Reports abdominal pain and nausea; Denies constipation, diarrhea or vomiting Genitourinary Genitourinary: Denies dysuria Musculoskeletal Musculoskeletal: Reports myalgias; Denies arthralgias or back pain Neurologic Neurologic: Denies dizziness, focal weakness or headache(s) Vital Signs Vital Signs Vital Signs: 08/06/23 10:09 Temperature 97.2 F L Temperature Source Temporal Pulse Rate 88 Respiratory Rate 16 Blood Pressure 134/88 H Blood Pressure Mean 103 Pulse Ox 100 Oxygen Delivery Method Room Air Weight Weight: 71.305 kg Body Mass Index (BMI) 24.6 Physical Exam Const alert and oriented x3 Constitutional Narrative: Young female, alert and sitting edge at the edge of the bed, mildly anxious appearing, somewhat flushed and diaphoretic appearing, otherwise conversing normally and in no acute distress. General Appearance: cooperative HEENT normocephalic, head/scalp atraumatic, hearing grossly normal bilaterally and nasal mucous membranes and turbinates normal Eyes PERRL, EOMs intact bilaterally and conjunctivae normal Neck full ROM, no lymphadenopathy and supple Lymph Lymphatic: no lymphadenopathy noted Chest inspection of chest normal Resp normal respiratory effort, normal air movement, no use of accessory muscles and clear to auscultation bilaterally Cardio regular rate, regular rhythm, no murmurs and peripheral pulses 2+ throughout GI normal to inspection, nondistended, normoactive bowel sounds, soft to palpation, non-tender and non-distended Back/Spine normal ROM Extremity normal to inspection, full ROM and no pedal edema Skin no rashes or lesions noted Neuro moves all extremities and no focal motor deficits Speech: speech normal Psych mental status grossly normal Mood & Affect: anxious Results Lab / Micro Data 08/06/23 10:50 08/06/23 10:50 Labs: Laboratory Results - last 24 hr 08/06/23 10:30: Urine Opiates Screen NEGATIVE, Urine Methadone Screen NEGATIVE, Ur Barbiturates Screen NEGATIVE, Ur Phencyclidine Scrn NEGATIVE, Ur Amphetamines Screen NEGATIVE, MDMA (Ecstasy) Screen NEGATIVE, U Benzodiazepines Scrn NEGATIVE, Urine Cocaine Screen NEGATIVE, U Cannabinoids Screen POSITIVE H, Ur Drug Screen Comment 08/06/23 10:50: WBC 18.9 H, RBC 4.77, Hgb 14.7, Hct 45.8, MCV 96.0, MCH 30.8, MCHC 32.1, RDW Std Deviation 44.0 H, RDW Coeff of Barbra 12.4, Plt Count 349, MPV 9.2, Immature Gran % (Auto) 0.400, Neut % (Auto) 82.1 H, Lymph % (Auto) 12.1 L, [place] % (Auto) 4.1, Eos % (Auto) 0.8, Baso % (Auto) 0.5, Absolute Neuts (auto) 15.5 H, Absolute Lymphs (auto) 2.28, Nucleated RBC % 0, Sodium 138, Potassium 4.5, Chloride 107, Carbon Dioxide 29.0, Anion Gap 2 L, BUN 12, Creatinine 0.79, Estim Creat Clear Calc 96.66, Est GFR (MDRD) Af Amer 106, Est GFR (MDRD) Non-Af 88, BUN/Creatinine Ratio 15.2, Glucose 89, Calcium 9.1, Total Bilirubin 0.10 L, AST 18, ALT 17, Alkaline Phosphatase 71, Total Protein 7.8, Albumin 3.7, Globulin 4.1, Albumin/Globulin Ratio 0.9, Serum , Qual NEGATIVE, Ethyl Alcohol < 3.0 Assessment & Plan Assessment/Plan (1) Opiate withdrawal: (2) Desire for detoxification: PLAN: Plan Patient is a 33-year-old female who presented to [facility] ED on 08/06/2023 for opiate detoxification. 1. Opiate abuse with desire for detoxification ? Case management/addiction medicine consulted. Urine drug screen was positive only for cannabinoids, but fentanyl notably does not show up on the screen. Orders placed per opiate withdrawal order set. Patient notably was adamant that she did not want to take Subutex while here, preferred to go cold turkey and only use as needed medications per opiate withdrawal order set. 2. Leukocytosis ? WBC count 18.9 on admit. Noninfectious appearing, hemodynamically stable and afebrile on admission. Suspect secondary to acute stress state. Follow-up a.m. CBC. No need for antibiotics at this time. 3. Current cigarette smoker ? Nicotine patch with nicotine gum as needed ordered per patient request. Encouraged cessation. 4. History of bipolar disorder ? Previously on antipsychotic medications at home, not currently on any medications. Outpatient follow-up. DVT prophylaxis: Low risk, ambulate CODE STATUS: Full code, verified Expected disposition: Home, 2 to 3 days Total clinical time spent by myself addressing the patient's medical issues, reviewing all the data, and collaborating with patient's care team: 40 minutes. Charges/Coding Visit Charges Inpatient E&M: 58751 Init Hosp L1
--- NOTE | 2023-08-06 11:35 | NURSING ---
DR HOUSTON FOR DR SON
--- NOTE | 2023-08-06 11:41 | NURSING ---
MED SURG MOSTELLER DETOX FROM OPIATES/FENTENYL
[2023-08-06 12:02] VITALS: BP 127/81; PULSE 73; RESP 16; TEMP 36.6; O2SAT 98
[2023-08-06 12:51] VITALS: BMI 24.6
[2023-08-06 12:52] VITALS: BP 122/87; PULSE 77; RESP 18; TEMP 36.9; O2SAT 98
[2023-08-06] MEDS: Dicyclomine 10 MG Capsule 20 MG PO ×2 (13:19→21:35)
[2023-08-06] MEDS: hydrOXYzine PAM 25 MG Capsule 50 MG PO (13:19)
[2023-08-06] MEDS: cloNIDine HCl 0.1 MG Tablet 0.100000000000000006 MG PO ×2 (13:19→21:35)
[2023-08-06] MEDS: Methocarbamol 750 MG Tablet PO ×2 (13:19→21:35)
[2023-08-06 17:38] VITALS: BP 105/77; PULSE 72; RESP 18; TEMP 36.8; O2SAT 100
[2023-08-06 20:15] VITALS: BP 111/81; PULSE 73; RESP 16; TEMP 36.8; O2SAT 100
[2023-08-06] MEDS: traZODone 100 MG Tablet PO (21:34)
[2023-08-06] MEDS: Gabapentin 300 MG Capsule PO (21:35)
[2023-08-07 03:57] VITALS: BP 110/76; PULSE 99; RESP 16; TEMP 36.1; O2SAT 96
[2023-08-07] MEDS: Methocarbamol 750 MG Tablet PO ×2 (05:39→11:25)
[2023-08-07] MEDS: Dicyclomine 10 MG Capsule 20 MG PO ×2 (05:39→11:25)
[2023-08-07] MEDS: cloNIDine HCl 0.1 MG Tablet 0.100000000000000006 MG PO (05:39)
[2023-08-07] MEDS: Gabapentin 300 MG Capsule PO (05:39)
--- NOTE | 2023-08-07 07:51 | ADDICTION ---
clinician met with client to discuss substance abuse and tx hx. client presented upset, avoidant, and hostile. when asked about her upcoming tx appointment, client stated CBT in [place] . client was not cooperative in answering any more questions. clinician completed discharge tx plan. clinician will attempt to speak with client tomorrow, 08/08/22.
[2023-08-07 07:56] LABS: Hematocrit 43.7 % (37-47); Hemoglobin 14.4 g/dL (12.0-15.0); Mean Corpuscular Hgb 31.1 pg (27.0-32.0); Mean Corpuscular Volume 94.4 fL (81-99); Mean Platelet Vol. 9.3 fl (6.2-12.0); Platelet Count 358 K/mm3 (150-450); RBC Distribution Width CV 12.3 % (11.6-14.6); RBC Distribution Width SD 42.7 fl (35.1-43.9); Red Blood Count 4.63 M/mm3 (4.2-5.4); White Blood Count 9.5 K/mm3 (4.4-11.0)
[2023-08-07 07:57] VITALS: BP 113/76; PULSE 83; RESP 16; TEMP 36.4; O2SAT 98
[2023-08-07 08:29] LABS: Anion Gap 8 (5-15); BUN 16 mg/dL (7-18); BUN/Creat Ratio 20.3 RATIO (10-20); Calcium,Total 9.1 mg/dL (8.5-10.1); Chloride 107 mmol/L (98-107); Creatinine, Serum 0.79 mg/dL (0.55-1.02); EST Glomerular Filtration Rate 88 mL/min (>60); Est Glom Filt Rate - Afr Amer 106 mL/min (>60); Estimated Creatinine Clearance 96.66 ml/min; Glucose 113 mg/dL (74-106); Potassium 4.6 mmol/L (3.5-5.1); Sodium Level 139 mmol/L (136-145)
[2023-08-07] MEDS: Acetaminophen 325 MG Tablet 650 MG PO (11:25)
[2023-08-07] MEDS: hydrOXYzine PAM 25 MG Capsule 50 MG PO (11:25)
[2023-08-07 11:30] VITALS: BP 101/68; PULSE 79; RESP 16; TEMP 36.6; O2SAT 96
--- NOTE | 2023-08-07 12:52 | PN.HOSP_ITS ---
Subjective Subjective No issues overnight, Cina score of 6 Objective Data Objective Data Vital Signs: Vital Signs Temp Pulse Resp BP Pulse Ox O2 Del Method 97.8 F 79 16 101/68 96 Room Air 08/07/23 11:30 08/07/23 11:30 08/07/23 11:30 08/07/23 11:30 08/07/23 11:30 08/07/23 11:30 Oxygen Delivery Method Room Air Weight: 157 lb 3.2 oz Body Mass Index (BMI) 24.6 Intake & Output: Intake and Output for Last 24 Hours 08/06/23 08/07/23 08/08/23 03:59 03:59 03:59 Intake Total 400 / 400 950 / 950 Balance 400 / 400 950 / 950 Lab / Micro Data 08/07/23 07:17 08/07/23 07:17 Labs: Laboratory Results - last 24 hr 08/07/23 07:17: WBC 9.5, RBC 4.63, Hgb 14.4, Hct 43.7, MCV 94.4, MCH 31.1, MCHC 33.0, RDW Std Deviation 42.7, RDW Coeff of Barbra 12.3, Plt Count 358, MPV 9.3, Sod ium 139, Potassium 4.6, Chloride 107, Carbon Dioxide 24.0, Anion Gap 8, BUN 16, Creatinine 0.79, Estim Creat Clear Calc 96.66, Est GFR (MDRD) Af Amer 106, Est GFR (MDRD) Non-Af 88, BUN/Creatinine Ratio 20.3 H, Glucose 113 H, Calcium 9.1 Physical Exam Narrative General: Alert, Oriented x3, Cooperative, No apparent distress HEENT: Atraumatic, PERRLA, EOMI, Normocephalic Oral: Moist Mucosa Neck: Supple, No JVD Lungs: Clear to auscultation, Normal air movement, No rhonchi, No wheeze, No rales Cardiovascular: Regular rate, Regular Rhythm, Normal S1, Normal S2, No murmurs Abdomen: Soft, Non Tender, Non-Distended, No Hepato-splenomegaly Extremities: No edema, Capillary Refill Less than 3 Seconds Skin: No rashes, No breakdown Musculoskeletal: No Tenderness to Palpation of Joints or Extremities Neurological: No focal neurological deficits, Motor Exam 5/5 strength throughout , Sensory exam intact to light touch and pain Psych/Mental Status: Normal Affect, Appropriate Assessment & Plan Assessment/Plan (1) Opiate withdrawal: (2) Desire for detoxification: PLAN: Plan 1. Opiate detox/bipolar disorder/tobacco abuse ? Leukocytosis was reactive ? Continue with the opiate withdrawal protocol ? She is refusing Subutex ? Will have her meet with 180 we discussed discharge planning ? Will need mental health help on discharge as she does have a history of bipolar disorder ? Continue with nicotine patch, discussed tobacco cessation DVT: Ambulation Charges/Coding Visit Charges Inpatient E&M: 08495 Subs Hosp L2
--- NOTE | 2023-08-07 13:54 | NURSING ---
pt left ama. paper signed
== END 2023-08-07 13:56 | disposition left against medical advice (07) | DRG 894 ==
LOC: ED 11:45 → MS3 11:55
PROVIDERS: Admitting Provider Hospitalist; Emergency Provider Emergency Medicine; PCP Physician Assistant Medical; Visit Provider Family Medicine
DX: F11.13 Opioid abuse with withdrawal (principal); F31.9 Bipolar disorder, unspecified; F17.210 Nicotine dependence, cigarettes, uncomplicated; Z53.29 Procedure and treatment not carried out because of patient's decision for other reasons; Z79.899 Other long term (current) drug therapy
CPT/HCPCS: 36415; 80048; 80053; 80307; 80320; 84703; 85025; 85027; 99221; 99283; G0378; G0480